=== PATIENT | male | born 1960 | race Caucasian/White ===

== ENCOUNTER 2018-09-19 19:58 | Emergency (ER) | payer SELFPAY ==
[~2018-09-19] VITALS: Ht 167.6 cm; Wt 54.4 kg
[2018-09-19 20:00] VITALS: BP 142/98
--- NOTE | 2018-09-19 20:00 | NUR ---
ED Nurse Note: PT BROUGHT TO ED BY [facility]IS[facility] DUE TO ETOH PT WAS PICKED UP ON THE STREET. PT WHEEL AND BLANKET AT BEDSIDE. NO ACUTE DISTRESS PRESENT
--- NOTE | 2018-09-19 20:01 | NUR ---
ED Nurse Note: per pt he did not have a lot to drink. pt did no smell of alcohol. pt was cooperative and able to answer questions. pt denies pain at the moment.
--- NOTE | 2018-09-19 20:13 | NUR ---
ED Nurse Note: PT BROUGHT DOWN FOR CT
--- NOTE | 2018-09-19 20:30 | NUR ---
ED Nurse Note: pt returned from CT
--- NOTE | 2018-09-19 20:36 | Diagnostic Imaging Report ---
EXAM: CT Head Without Intravenous Contrast CLINICAL HISTORY: AMS TECHNIQUE: Axial computed tomography images of the head/brain without intravenous contrast. CTDI is 0.15, 0.15, 70.38 70.38 mGy and DLP is 1917 mGy-cm. One or more of the following dose reduction techniques were used: automated exposure control, adjustment of the mA and/or kV according to patient size, use of iterative reconstruction technique. COMPARISON: No relevant prior studies available. FINDINGS: Brain: No acute infarct, hemorrhage, mass or edema. Chronic small vessel ischemic disease. Ventricles: Unremarkable. No ventriculomegaly. Bones/joints: No acute osseous abnormality. Soft tissues: Unremarkable. Sinuses: Minimal mucosal thickening in the paranasal sinuses. Mastoid air cells: Unremarkable as visualized. No mastoid effusion. IMPRESSION: No acute findings.
--- NOTE | 2018-09-19 21:00 | NUR ---
ED Nurse Note: found pt medication, per [employer] [place] [employer]. pt name is sveta galindo.
--- NOTE | 2018-09-19 21:50 | Emergency Room Report ---
History of Present Illness General Chief Complaint: Alcohol Intoxication Source: Patient, EMS Present Illness HPI The patient is a 69-year-old male brought in by ambulance for alcohol intoxication. The patient is sleeping and does not provide useful cremation at this time. Allergies: Coded Allergies: UNABLE TO ASSESS (Unverified , 09/19/18) Patient History Past Medical History: see triage record, psych hx Past Surgical History: other Social History: Reports: alcohol use Reviewed Nursing Documentation: PMH: Agreed; PSxH: Agreed Nursing Documentation-PMH History Of Psychiatric Problem: Yes - ETOH abuse, psychosis Hx Neurological Problems: Yes - R leg BKA Review of Systems All Other Systems: negative except mentioned in HPI Physical Exam Vital Signs Date Time Temp Pulse Resp B/P (MAP) Pulse Ox O2 Delivery O2 Flow Rate FiO2 09/19/18 19:56 97.5 88 18 142/98 97 Room Air Sp02 EP Interpretation: reviewed, normal General Appearance: no apparent distress, alert, GCS 15, non-toxic Head: normocephalic, atraumatic Eyes: bilateral eye normal inspection, bilateral eye PERRL Respiratory: chest non-tender, lungs clear, normal breath sounds, speaking full sentences Cardiovascular #1: regular rate, rhythm, no edema Gastrointestinal: normal bowel sounds, non tender, soft, non-distended, no guarding, no rebound Musculoskeletal: other - R BKA Neurologic: responsive, sensory intact Skin: normal color, no rash, warm/dry, well hydrated Medical Decision Making PA Attestation Dr. Arceo is my supervising physician. Patient management was discussed with my supervising physician Homeless Attestation I, The treating provider, Adithya AGUILAR, have assessed and agree that patient is medically stable for discharge to an outpatient disposition. Diagnostic Impression: Primary Impression: Acute alcoholic intoxication Qualified Codes: F10.920 - Alcohol use, unspecified with intoxication, uncomplicated ER Course The patient is a 69-year-old male brought in by ambulance for alcohol intoxication. DDx considered but not limited to: acute alcohol intoxication, hyper/ hypoglycemia, drug overdose, psychosis Physical exam: Vitals are within normal limits. No apparent distress. Patient is lethargic. Head is normocephalic atraumatic. Pupils are equally round and reactive to light The patient is easily awaken by touch Lungs are clear to auscultation bilaterally. No abnormal tenderness. Abdomen is soft. Otherwise exam is unremarkable CT head unremarkable The patient is given time to rest in the emergency department. Upon reevaluation, patient is awake, alert, and asking to be discharged. The patient is able to ambulate well and is asking to leave at this time. The patient be discharged home and given ER precautions. Patient was given advice on alcohol addiction CT/MRI/US Diagnostic Results CT/MRI/US Diagnostic Results : Imaging Test Ordered: CT head Impression No acute findings Last Vital Signs Date Time Temp Pulse Resp B/P (MAP) Pulse Ox O2 Delivery O2 Flow Rate FiO2 09/19/18 20:00 88 18 Room Air 09/19/18 20:00 97.5 142/98 97 Status: improved Disposition: HOME, SELF-CARE Condition: Improved ADITHYA ASHBY Sep 19, 2018 21:50
[2018-09-19 21:55] VITALS: BP 142/98
--- NOTE | 2018-09-19 21:55 | NUR ---
ER DISCHARGE NOTE: Patient is cleared to be discharged per ERMD, pt is aox4, on room air, with stable vital signs. pt was given dc and prescription instructions, pt was able to verbalize understanding, pt id band removed. pt took all belongings.
--- NOTE | 2018-09-19 22:01 | NUR ---
Note janes in EDM - 09/19/18 at 2251 by KAROL ED Nurse Note: per pt he did not have a lot to drink. pt did no smell of alcohol. pt was cooperative and able to answer questions. pt denies pain at the moment.
== END 2018-09-19 21:50 | disposition home or self-care (01) ==
LOC: EDBD → EMR 20:18
DX: F10.920 Alcohol use, unspecified with intoxication, uncomplicated (principal); Z89.511 Acquired absence of right leg below knee; R41.82 Altered mental status, unspecified
CPT/HCPCS: 70450; 99284

== ENCOUNTER 2018-09-20 03:23 | Emergency (ER) | payer OTHER ==
[~2018-09-20] VITALS: Ht 160 cm; Wt 59.0 kg
[2018-09-20 03:40] VITALS: BP 111/68
--- NOTE | 2018-09-20 03:40 | NUR ---
ED Nurse Note: per [id number] Pt was found on street and c/o general weakness and ETOH.
--- NOTE | 2018-09-20 04:03 | Emergency Room Report ---
History of Present Illness General Chief Complaint: Alcohol Intoxication Source: Patient, Medical Record, EMS Present Illness HPI Is a 58-year-old male who has a history of alcohol abuse. He's been in several hospital for alcohol intoxication. He was just at [facility] yesterday and then here. He was here earlier today and wanted to be discharged. He went to the bus stop and was sleeping there. Police pulled up and call 911. Patient said he wants to go to the hospital. He has no complaint. No fever chills but no nausea no vomiting. Denies any other symptoms. Allergies: Coded Allergies: UNABLE TO ASSESS (Unverified , 09/19/18) Patient History Past Medical History: see triage record, old chart reviewed Past Surgical History: other Pertinent Family History: none Social History: Reports: alcohol use Immunizations: other Reviewed Nursing Documentation: PMH: Agreed; PSxH: Agreed Nursing Documentation-PMH History Of Psychiatric Problem: Yes - ETOH Hx Neurological Problems: Yes - R leg BKA Review of Systems Eye: Denies: eye pain, blurred vision ENT: Denies: ear pain, nose congestion, throat swelling Respiratory: Denies: cough, shortness of breath Cardiovascular: Denies: chest pain, palpitations Gastrointestinal: Denies: abdominal pain, diarrhea, nausea, vomiting Musculoskeletal: Denies: back pain, joint pain Skin: Denies: rash Neurological: Denies: headache, numbness Endocrine: Denies: increased thirst, increased urine Hematologic/Lymphatic: Denies: easy bruising All Other Systems: negative except mentioned in HPI Physical Exam Vital Signs Date Time Temp Pulse Resp B/P (MAP) Pulse Ox O2 Delivery O2 Flow Rate FiO2 09/20/18 03:25 98.1 101 20 111/68 98 Room Air vitals unremarkable Sp02 EP Interpretation: reviewed, normal General Appearance: well appearing, no apparent distress, alert Head: normocephalic, atraumatic Eyes: bilateral eye PERRL, bilateral eye EOMI ENT: hearing grossly normal, normal pharynx Neck: full range of motion, supple, no meningismus Respiratory: chest non-tender, lungs clear, normal breath sounds Cardiovascular #1: regular rate, rhythm, no murmur Gastrointestinal: normal bowel sounds, non tender, no mass, no organomegaly, no bruit, non-distended Musculoskeletal: back normal, other - Patient in wheelchair Neurologic: alert, oriented x3 Psychiatric: mood/affect normal Skin: warm/dry Medical Decision Making Diagnostic Impression: Primary Impression: Acute alcoholic intoxication Qualified Codes: F10.920 - Alcohol use, unspecified with intoxication, uncomplicated ER Course Patient presents with alcohol intoxication. No withdrawal symptoms. No trauma to warrant x-ray or CT scan. Patient had CT scan done here earlier and was negative. No new trauma. Last Vital Signs Date Time Temp Pulse Resp B/P (MAP) Pulse Ox O2 Delivery O2 Flow Rate FiO2 09/20/18 03:42 101 20 Room Air 09/20/18 03:40 98.1 111/68 98 Status: improved Disposition: HOME, SELF-CARE Condition: Stable Patient Instructions: Alcohol Intoxication, [id number] Additional Instructions: Abstain from alcohol. Go to rehabilitation. Return if worse. Toi Guzman MD Sep 20, 2018 04:03
--- NOTE | 2018-09-20 04:25 | NUR ---
ED Nurse Note: pt is resting in bed, vss at the moment, pt has all his belongings at bedside.
--- NOTE | 2018-09-20 05:10 | NUR ---
ER DISCHARGE NOTE: Patient is cleared to be discharged per ERMD, pt is aox4, on room air, with stable vital signs. pt was given dc instructions, pt was able to verbalize understanding, pt id band removed . pt is able to ambulate with steady gait. pt took all belongings.
[2018-09-20 05:12] VITALS: BP 113/64
== END 2018-09-20 05:12 | disposition home or self-care (01) ==
LOC: EDBD 03:23 → EMR 03:45
DX: F10.920 Alcohol use, unspecified with intoxication, uncomplicated (principal); Z89.511 Acquired absence of right leg below knee
CPT/HCPCS: 99282